=== PATIENT | female | born 1995 | race Caucasian/White ===

== ENCOUNTER 2019-03-23 09:21 | Outpatient (CLI) | payer BC ==
--- NOTE | 2019-03-23 11:03 | BD ---
DEXA DENSITOMETRY: INDICATIONS: A 23-year-old female for osteoporosis screening. Reason for screening at this age is not specified. FINDINGS: LUMBAR SPINE BMD (g/cm2) T-SCORE L1 0.895 -0.9 L2 0.948 -0.7 L3 0.974 -1.0 L4 0.952 -1.0 TOTAL 0.944 -0.9 FEMORAL NECK 0.757 -0.8 TOTAL 0.963 0.2 IMPRESSION: The bone mineral density of the lumbar spine and femoral neck are within the normal range. POS: [facility]
== END 2019-03-23 09:22 | disposition home or self-care (01) ==
LOC: BICMAMMO 09:21
PROVIDERS: ATTEND Nurse Practitioner Women's Health
DX: M85.80 Other specified disorders of bone density and structure, unspecified site (principal); Z13.828 Encounter for screening for other musculoskeletal disorder
CPT/HCPCS: 77080